=== PATIENT | male | born 1975 | race Caucasian/White ===

== ENCOUNTER 2024-10-01 00:20 | Day surgery (SDC) | payer OTHER, SELFPAY ==
--- NOTE | 2024-09-30 13:26 | PC.NURSE ---
Report to the Outpatient Waiting Room, entrance under the green pavilion located off [facility], at time _1330 on date _10/01/24 . Planned Procedure Time: __1530 .? Time changes happen often and if your time is changed the preop area will call you the afternoon before. - You and your visitor will be asked to self-screen and do not enter if you have any COVID symptoms. Please call surgeon if you need to reschedule. - A mask is optional within the hospital at this time. Patients may have clear liquids (water, carbonated beverages, clear teas, apple juice) until 3 hours prior to surgery ( 12:30 )with a maximum of 20 ounces. - No food from midnight until time of surgery and no smoking, or chewing tobacco (or any form of nicotine). No chewing gum, candy or mints. - Infants may have breast milk until 4 hours before surgery, formula 6 hours prior to surgery. - Children will be allowed to drink immediately following surgery.? If applicable, please bring a bottle or sippy cup to assist with drinking. Juice, water, soda, and popsicles are readily available.? For infants on formula, please bring formula the day of surgery.? Pacifiers are allowed. Take only the following medications with a SIP of water on the morning of surgery: NONE DO NOT STOP ANY OF YOUR OTHER PRESCRIPTION MEDICATIONS PRIOR TO SURGERY EXCEPT THE FOLLOWING Hold all vitamins and supplements for 3 days per anesthesiologist. Medications to discontinue per physician PT STATES HOLD ASPIRIN AND WARFARIN LAST DOSE 09/29/[address] CANTU Please no make-up, nail tristanian, hairspray, perfume, deodorant, or body powder the day of surgery.? No jewelry (including any body piercings) or valuables the day of surgery, leave them at home.? Please take a shower or bath the night before, or the morning of, surgery with an antibacterial soap.? Wear comfortable, loose fitting clothing.? Children are encouraged to wear pajamas. - Jewelry must be removed prior to entering the operating room.? Rings and piercings that are not removed may be cut off. - The hospital will not accept responsibility for valuables.? - Please leave all valuables, including medications, at home the day of surgery. If you are going home after surgery, a licensed food service driver must drive you home.? - NO public transportation without another adult if you receive anesthesia. - We recommend that an adult stay with you for 24 hours following discharge. - We also recommend that you do not drive, make important decision, drink alcoholic beverages, or take any drugs that were not prescribed by your health care provider for at least 24 hours after your discharge time. For Pediatric surgeries, we recommend two adults accompany the child home. Follow any additional instructions given to you from your surgeon. Telephone instructions given to __PATIENT and asked if any additional questions and then verbalized understanding. Patient advised to call surgeon office or pre surgery nurse liaison [phone] if any additional questions.
[2024-09-30 13:31] VITALS: BMI 25.0
[2024-10-01] VITALS (8 sets, daily range): BP systolic 112–145; BP diastolic 70–84; PULSE 53–69; RESP 12–20; TEMP 36.2–36.3; O2SAT 99–100
--- OUTSIDE RECORDS SUMMARY | 2024-10-01 00:23 | XMS_ITS | Encounter Summary ---
Author Organization [facility] Address [address] [place] [address] Phone Care Team Providers Care Rn Teacher Name Role Phone Rell Rose MD Primary Care Provider [phone] Peter Hollins DPM Unavailable [phone] Tom Arias MD Unavailable Zee Garcia APRN, ARMAMENT REPAIRER Unavailable [phone]- [phone] Dwayne Rich MD Unavailable Reason for Visit * Reason Comments Medication Refill Encounter Details Date Type Department Care Team (Late st Contact Info) Description 10/11/2022 Refill [facility] - Family [facility] #2 [place] [address] Rell Rose MD [address] [address] Medication Refill Social History Tobacco Use Types Packs/Day Years Used Date Smoking Tobacco: Never Smokeless Tobacco: Never Alcohol Use Standard Drinks/Week Comments Yes 0 (1 standard drink = 0.6 oz pure alcohol) Patient has been consuming 1-2 glasses of wine nightly, more on weekends. PHQ-2 Answer Date Recorded Total Score - Questions 1-9 0 02/07/2020 Sexually Active Control Partners Comments Yes Female Sex and Gender Information Value Date Recorded Sex Assigned at Not on file Legal Sex Male 9:28 PM CDT Gender Identity Not on file Sexual Orientation Not on file COVID-19 Exposure Response Date Recorded In the last 10 days, have yo u been in contact with someone who was confirmed or suspected to have Coronavirus/COVID-19? No / Unsure 10/09/2022 1:20 PM CDT documented as of this encounter Miscellaneous Notes * Telephone Encounter - Mayra Neal RN - 10/11/2022 10:36 AM CDT 09/26/22 - PT 27.2 INR 2.5 - - no result note on lab, anticoag review last updated 08/28/22 Pt takes 10 mg daily r nursing clinical judgement, provider to review and approve the medication(s) order(s) if appropriate. Requested Prescriptions Pending Prescriptions Disp Refills warfarin (COUMADIN) 10 MG Tablet [Pharmacy Med Name: WARFARIN SODIUM 10 MG TABLET] 90 Tablet 0 Sig: TAKE 1 TABLET BY MOUTH EVERY DAY Warfarin Protocol Passed - 10/11/2022 12:01 AM Passed - CBC on record in the past year WBC Date Value Ref Range Status 09/26/2022 3.27 (L) 4.00 - 12.00 10(3)/mcL Final WBC ESTERASE Date Value Ref Range Status 02/04/2019 Negative Negative Final RBC Date Value Ref Range Status 09/26/2022 4.38 (L) 4.40 - 5.80 10(6)/mcL Final HEMATOCRIT (HCT) Date Value Ref Range Status 09/26/2022 43.5 38.0 - 50.0 % Final HEMOGLOBIN (HGB) Date Value Ref Range Status 09/26/2022 14.4 13.0 - 16.5 g/dL Final MCV Date Value Ref Range Status 09/26/2022 99.3 (H) 82.0 - 96.0 fL Final MCH Date Value Ref Range Status 09/26/2022 32.9 (H) 26.0 - 32.0 pg Final MCHC Date Value Ref Range Status 09/26/2022 33.1 31.0 - 36.0 g/dL Final Passed - Visit with relevant provider in past 12 months or upcoming 90 days Recent Visits Date Type Provider Dept 08/28/22 Office Visit [facility] Showing recent visits within past 365 days and meeting all other requirements Future Appointments Date Type Provider Dept 11/27/22 Appointment Rell Rose MD [facility] Showing future appointments within next 90 days and meeting all other requirements Passed - Patient has referral for nurse managed warfarin, please send to nurse- managed anticoag clinic Orders placed or performed in visit on 12/11/21 (from the past 6[address] hour(s)) ANTICOAGULATION MONITORING REFERRAL Orders placed or performed in visit on 12/12/20 (from the past 32454 hour(s)) ANTICOAGULATION MONITORING REFERRAL Passed - Display Most Recent Dose (if blank, no data is available, check Anticoagulation activity) Description Continue 10 mg daily. Passed - INR on record in the past 6 weeks INR Date Value Ref Range Status 09/26/2022 2.5 (H) 0.9 - 1.2 Final Comment: Therapeutic Ranges INR = 2.0-3.0: Venous thromb, atrial fib, pul embolism, tissue heart valve, ami. INR = 2.5-3.5: Mechanical heart valve Critical value for INR is >/= 4.5 08/28/2022 3.0 (A) 0.9 - 1.1 Final documented in this encounter Plan of Treatment Upcoming Encounters Date Type Department Care Team (Latest Contact Info) Description 10/07/2024 3:45 PM CDT [facility] [address] [place] [address] Dru Hamlin PSYD [place] Discharge Disposition: Discharged to home or Selfcare 10/19/2024 2:15 PM CDT [facility] [address] [place] [address] Dru Hamlin PSYD [place] Discharge Disposition: Discharged to home or Selfcare 01/14/2025 1:30 PM CDT Office Visit [facility] - Cardiology - [place] #2 [place] [address] Zee Kyle APRN, ARMAMENT REPAIRER #[address] [address] 04/15/2025 10:30 AM CDT [facility] Visit [facility] - Family [facility] #2 [place] [address] Rell Rose MD #[address] [address] documented as of this encounter 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 documented in this encounter Additional Health Concerns Assessment Noted Time PHQ-9 Depression Total Score: 0 08/29/19 21 7:00 AM IMPRESSION PRINTER documented as of this encounter Care Teams Rn Teacher Relationship Specialty Start Date End Date Rell Rose MD #[address] [address] PCP - General Family Medicine 06/08/15 Peter Hollins DPM #[address] [address] Podiatry 05/01/16 07/01/24 Tom Arias MD #[address] [address] Consulting Physician Cardiovascular Disease - Cardiology 10/02/22 07/01/24 Zee Kyle APRN, ARMAMENT REPAIRER #[address] [address] Nurse Practitioner Cardiology 01/03/24 Dwayne Rich MD #[address] [address] Consulting Physician Colon and Rectal Surgery 07/14/24 documented as of this encounter
--- OUTSIDE RECORDS SUMMARY | 2024-10-01 00:23 | XMS_ITS | Encounter Summary ---
Author Organization [facility] Address [address] [place] [address] Phone Care Team Providers Care State'S Attorney Name Role Phone Rell Rose MD Primary Care Provider [phone] Peter Hollins DPM Unavailable [phone] Tom Arias MD Unavailable Zee Garcia APRN, TOOL AND DIE ENGINEER Unavailable [phone] Dwayne Rich MD Unavailable Reason for Visit * Reason Comments Medication Refill Encounter Details Date Type Department Care Team (Late st Contact Info) Description 05/25/2023 Refill [facility] - Family Medicine [facility] #2 [place] [address] Rell Rose MD #[address] [address] Medication Refill Social History Tobacco Use Types Packs/Day Years Used Date Smoking Tobacco: Never Smokeless Tobacco: Never Alcohol Use Standard Drinks/Week Comments Yes 0 (1 standard drink = 0.6 oz pure alcohol) Patient has been consuming 1-2 glasses of wine nightly, more on weekends. PHQ-2 Answer Date Recorded Total Score - Questions 1-9 0 02/0 07/2020 Sexually Active Control Partners Comments Yes Female Sex and Gender Information Value Date Recorded Sex Assigned at Not on file Legal Sex Male 9:28 PM CDT Gender Identity Not on file Sexual Orientation Not on file documented as of this encounter Miscellaneous Notes * Telephone Encounter - Mckayla Knight RN - 05/26/2023 8:35 AM CDT 04-11-23 = last PT/INR draw in chart 04-12-23 = anticoag RN conducted tele-managed appt: INR 2.2 patien had eaten several salads last week. He will continue to take 10mg every day. [facility] follow [facility]. I don't see any upcoming lab appts. Medication failed the protocol, provider to review and approve the medication order if appropriate. Requested Prescriptions Pending Prescriptions Disp Refills warfarin (COUMADIN) 10 MG Tablet [Pharmacy Med Name: WARFARIN SODIUM 10 MG TABLET] 90 Tablet 0 Sig: TAKE 1 TABLET BY MOUTH EVERY DAY Warfarin Protocol Failed - 05/25/2023 7:03 AM Failed - INR on record in the past 6 weeks INR Date Value Ref Range Status 04/11/2023 2.2 (H) 0.9 - 1.2 Final Comment: Therapeutic Ranges INR = 2.0-3.0: Venous thromb, atrial fib, pul embolism, tissue heart valve, ami. INR = 2.5-3.5: Mechanical heart valve Critical value for INR is >/= 4.5 08/28/2022 3.0 (A) 0.9 - 1.1 Final Passed - CBC on record in the [...] 32.9 (H) 26.0 - 32.0 pg Final [facility] Date Value Ref Range Status 09/26/2022 33.1 31.0 - 36.0 g/dL Final Passed - Visit with relevant provider in past 12 months or upcoming 90 days Recent Visits Date Type Provider Dept 08/28/22 Office Visit Rell Rose MD [facility] Showing recent visits within past 365 days and meeting all other requirements Future Appointments No visits were found meeting these conditions. Showing future appointments within next 90 days and meeting all other requirements Passed - Patient has referral for nurse managed warfarin, please send to nurse- managed anticoag clinic Orders placed or performed in visit on 03/22/23 (from the past [address] hour(s)) ANTICOAGULATION MONITORING REFERRAL Orders placed or performed in visit on 12/11/21 (from the past [address] hour(s)) ANTICOAGULATION MONITORING REFERRAL Passed - Display Most Recent Dose (if blank, no data is available, check Anticoagulation activity) Description INR 2.2 patien had eaten several salads last week. He will continue to take 10mg every day. [facility]. documented in this encounter Plan of Treatment Upcoming Encounters Date Type Department Care Team (Latest Contact Info) Description 10/07/2024 3:45 PM CDT Outpatient Clinic Visit [facility] [address] [place] [address] Dru Hamlin PSYD [place] Discharge Disposition: Discharged to home or Selfcare 10/19/2024 2:15 PM CDT [facility] [address] [place] [address] Dru Hamlin PSYD [place] Discharge Disposition: Discharged to home or Selfcare 01/14/2025 1:30 PM CDT Office Visit [facility] - Cardiology - [place] #2 [place] [address] Zee Kyle APRN, TOOL AND DIE ENGINEER #2 [facility], [address] [place] [address] 04/15/2025 10:30 AM CDT [facility] #[address] [place] [address] Rell Rose MD #[address] [place] [address] [address] documented as of this encounter 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 documented in this encounter Additional Health Concerns Assessment Noted Time PHQ-9 Depression Total Score: 0 08/29/19 21 7:00 AM PYTHON ENGINEER documented as of this encounter Care Teams State'S Attorney Relationship Specialty Start Date End Date Rell Rose MD [address] [address] PCP - General Family Medicine 06/08/15 Peter Hollins DPM [address] [address] Podiatry 05/01/16 07/01/24 Tom Arias MD #[address] [address] Consulting Physician Cardiovascular Disease - Cardiology 10/02/22 07/01/24 Zee Kyle APRN, TOOL AND DIE ENGINEER [address] [place] [address] [address] Nurse Practitioner Cardiology 01/03/24 Dwayne Rich MD #[address] [place] [address] [address] Consulting Physician Colon and Rectal Surgery 07/14/24 documented as of this encounter
--- OUTSIDE RECORDS SUMMARY | 2024-10-01 00:23 | XMS_ITS | Encounter Summary ---
Author Organization [facility] Address [address] [place] [address] Phone Care Team Providers Care Medical Billing Manager Name Role Phone Rell Rose MD Primary Care Provider [phone] Peter Hollins DPM Unavailable [phone] Tom Arias MD Unavailable Zee Garcia APRN, WRAPPER SHEETER Unavailable [phone]- [phone] Dwayne Rich MD Unavailable Reason for Visit * Reason Comments Medication Refill Encounter Details Date Type Department Care Team (Late st Contact Info) Description 09/02/2020 [facility] [address] [place] [address] Rell Rose MD #[address] [address] Medication Refill Social History Tobacco Use Types Packs/Day Years Used Date Smoking Tobacco: Never Smokeless Tobacco: Never Alcohol Use Standard Drinks/Week Comments Yes 0 (1 standard drink = 0.6 oz pure alcohol) Patient has been consuming 1-2 glasses of wine nightly, more on weekends. PHQ-2 Answer Date Recorded Total Score - Questions 1-9 0 07/2020 Sexually Active Control Partners Comments Yes Female Sex and Gender Information Value Date Recorded Sex Assigned at Not on file Legal Sex Male 9:28 PM CDT Gender Identity Not on file Sexual Orientation Not on file COVID-19 Exposure Response Date Recorded In the last month, have you been in contact with someone who was confirmed or suspected to have Coronavirus / COVID-19? No / Unsure 08/29/2020 7:48 AM WASTEWATER PLANT OPERATOR documented as of this encounter Miscellaneous Notes * Telephone Encounter - Mayra Neal RN - 09/02/2020 11:04 AM CST Medication failed the protocol, provider to review and approve the medication order if appropriate. Requested Prescriptions Pending Prescriptions Disp Refills warfarin (COUMADIN) 6 MG Tablet [Pharmacy Med Name: WARFARIN SODIUM 6 MG TABLET] 90 Tab 0 Sig: TAKE 1 TABLET BY MOUTH EVERY DAY Hematology: Anticoagulants - Warfarin Failed - 09/02/2020 11:03 AM Failed - INR in normal range and within 90 days INR Date Value Ref Range Status 08/11/2020 2.3 (H) 0.9 - 1.2 Final Comment: Therapeutic Ranges INR = 2.0-3.0: Venous thromb, atrial fib, pul embolism, tissue heart valve, ami. INR = 2.5-3.5: Mechanical heart valve Critical value for INR is >/= 4.5 Passed - Valid encounter within last 12 months Past Office Visits Recent Outpatient Visits 4 days ago Thoracolumbar back pain [facility] Frederic Grace APN, CNP 6 months ago Anticoagulated on Coumadin [facility] - Rell Guaman MD 9 months ago Hyperlipidemia, unspecified hyperlipidemia type [facility] Rell Guaman MD 1 year ago Sprain of right knee, unspecified ligament, initial encounter [facility] Frederic Grace APN, CNP 1 year ago [facility] Upcoming Appointments Future Appointments In 1 month Frederic Rae APN, DIOGO [facility] STEPH Varela [facility] [place] - Recent and Past Visits Recent Visits Date Type Provider Dept 08/29/20 Office Visit Frederic Rae APN, CNP [facility] 02/25/20 Office Visit [facility] 11/23/19 Telemedicine Rell Rose MD [facility] 08/24/19 Office Visit Frederic Rae APN, DIOGO [facility] Showing recent visits within past 460 days with a meds authorizing provider and meeting all other requirements Future Appointments Date Type Provider Dept 10/27/20 Appointment Frederic Rae APN, DIOGO [facility] Showing future appointments within next 90 days with a meds authorizing provider and meeting all other requirements EWATER PLANT OPERATOR documented in this encounter Plan of Treatment Upcoming Encounters Date Type Department Care Team (Latest Contact Info) Description 10/07/2024 3:45 PM CDT Outpatient Clinic Visit [facility] [address] [place] [address] Dru Hamlin PSYD [place] Discharge Disposition: Discharged to home or Selfcare 10/19/2024 2:15 PM CDT Outpatient Clinic Visit [facility] 1 [place] [address] Dru Hamlin PSYD [place] Discharge Disposition: Discharged to home or Selfcare 01/14/2025 1:30 PM CDT Office Visit [facility] Medical [facility] - Cardiology - [place] #2 [place] [address] Zee Kyle APRN, WRAPPER SHEETER #2 [facility] [address] [place] [address] 04/15/2025 10:30 AM CDT Office Visit [facility] - Family Medicine - [place] #2 [place] [address] Rell Rose MD #[address] [address] documented as of this encounter Visit Diagnoses Not on filedocumented in this encounter Additional Health Concerns Infection Onset Date Last Indicated Resolved Time COVID - 19 07/16/2022 07/16/2022 07/26/2022 12:1 9 AM WASTEWATER PLANT OPERATOR Assessment Noted Time PHQ-9 Depression Total Score: 0 08/29/19 21 7:00 AM WASTEWATER PLANT OPERATOR documented as of this encounter Care Teams Medical Billing Manager Relationship Specialty Start Date End Date Rell Rose MD #[address] [address] PCP - General Family Medicine 06/08/15 Peter Hollins DPM #[address] [address] Podiatry 05/01/16 07/01/24 Tom Arias MD #[address] [address] Consulting Physician Cardiovascular Disease - Cardiology 10/02/22 07/01/24 Zee Kyle, STONE GRADER, WRAPPER SHEETER #2 [facility] [place] [address] [address] Nurse Practitioner Cardiology 01/03/24 Dwayne Rich MD #[address] [address] Consulting Physician Colon and Rectal Surgery 07/14/24 documented as of this encounter
--- OUTSIDE RECORDS SUMMARY | 2024-10-01 00:23 | XMS_ITS | Encounter Summary ---
Author Organization [facility] Address [address] [place] [address] Phone Care Team Providers Care Trophy Assembler Name Role Phone Rell Rose MD Primary Care Provider +1- [phone] Peter Hollins DPM Unavailable [phone] Tom Arias MD Unavailable Zee Garcia APRN, LATHE SCALPER OPERATOR Unavailable +- [phone] Dwayne Rich MD Unavailable Reason for Visit * Reason Comments Medication Refill Encounter Details Date Type Department Care Team (Late st Contact Info) Description 02/04/2020 Refill [facility] - Family Medicine [facility] #2 [place] [id number] Frederic Rae, GUEVARA, LATHE SCALPER OPERATOR #[address] [address] Medication Refill Social History Tobacco Use Types Packs/Day Years Used Date Smoking Tobacco: Never Smokeless Tobacco: Never Alcohol Use Standard Drinks/Week Comments Yes 0 (1 standard drink = 0.6 oz pure alcohol) Patient has been consuming 1-2 glasses of wine nightly, more on weekends. PHQ-2 Answer Date Recorded PHQ-2 Score 0 04/01/2019 Sexually Active Control Partners Comments Yes Female Sex and Gender Information Value Date Recorded Sex Assigned at Not on file Legal Sex Male 9:28 PM CDT Gender Identity Not on file Sexual Orientation Not on file documented as of this encounter Miscellaneous Notes * Telephone Encounter - Courtney Sunshine RN - 02/09/2020 11:33 AM CDT Requested Prescriptions Pending Prescriptions Disp Refills eszopiclone (LUNESTA) 2 MG Tablet [Pharmacy Med Name: ESZOPICLONE 2 MG TABLET] 30 Tab Sig: TAKE 1 TABLET BY MOUTH NIGHTLY NEEDED FOR SLEEP Not Delegated - Psychiatry: Anxiolytics/Hypnotics Failed - 02/04/2020 7:48 AM Failed - This refill cannot be delegated Passed - Valid encounter within last 6 months Past Office Visits Recent Outpatient Visits 2 months ago Hyperlipidemia, unspecified hyperlipidemia type [facility] Rell Rose MD 5 months ago Sprain of right knee, unspecified ligament, initial encounter [facility] Frederic Rae APN, LATHE SCALPER OPERATOR 9 months ago Hyperglycemia [facility] Frederic Rae APN, LATHE SCALPER OPERATOR 1 year ago Anticoagulated on Coumadin [facility] Rell Velarde MD 1 year ago Anticoagulated on Coumadin [facility] Rell Rose MD Upcoming Appointments Future Appointments In 2 weeks Rell Rose MD [facility] documented in this encounter Plan of Treatment Upcoming Encounters Date Type Department Care Team (Latest Contact Info) Description 10/07/2024 3:45 PM CDT [facility] 1 [place] [address] Dru Ham[place]YD [place] Discharge Disposition: Discharged to home or Selfcare 10/19/2024 2:15 PM CDT Outpatient Clinic Visit [facility] 1 [place] [address] [place], Dru Severo, PSYD [place] Discharge Disposition: Discharged to home or Selfcare 01/14/2025 1:30 PM CDT Office Visit [facility] Medical [facility] - Cardiology - [place] #[address] [place] [address] Zee Kyle APRN, LATHE SCALPER OPERATOR [address], [address] [place] [address] 04/15/2025 10:30 AM CDT [facility] [place] #[address] [place] [address] Rell Rose MD [address] [address] documented as of this encounter Visit Diagnoses Not on filedocumented in this encounter Additional Health Concerns Infection Onset Date Last Indicated Resolved Time COVID - 19 07/16/2022 07/16/2022 07/26/2022 12:1 9 AM FOOTWEAR PRODUCTION MACHINE OPERATOR Assessment Noted Time PHQ-9 Depression Total Score: 0 08/24/19 20 1:00 PM FOOTWEAR PRODUCTION MACHINE OPERATOR documented as of this encounter Care Teams Trophy Assembler Relationship Specialty Start Date End Date Rell Rose MD #[address] [address] PCP - General Family Medicine 06/08/15 Peter Hollins DPM #[address] [address] Podiatry 05/01/16 07/01/24 Tom Arias MD [address] [place] [address] Consulting Physician Cardiovascular Disease - Cardiology 10/02/22 07/01/24 Zee Kyle APRN, LATHE SCALPER OPERATOR [address], [address] [place] [address] Nurse Practitioner Cardiology 01/03/24 Dwayne Rich MD #[address] [place] [address] Consulting Physician Colon and Rectal Surgery 07/14/24 documented as of this encounter
--- OUTSIDE RECORDS SUMMARY | 2024-10-01 00:23 | XMS_ITS | Encounter Summary ---
Author Organization [facility] Address [address] [place] [address] Phone Care Team Providers Care Insurance Broker Name Role Phone Rell Rose MD Primary Care Provider [phone]- [phone] Peter Hollins DPM Unavailable [phone] Tom Arias MD Unavailable Zee Garcia APRN, DIGITAL COMPUTER SYSTEMS ANALYST Unavailable [phone]- [phone] Dwayne Rich MD Unavailable Reason for Visit * Reason Comments Medication Refill Encounter Details Date Type Department Care Team (Late st Contact Info) Description 03/23/2021 Refill [facility] #2 [place] [address] Rell Rose MD #[address] [address] Medication Refill Social History Tobacco Use Types [...] have Coronavirus / COVID-19? No / Unsure 03/07/2021 8:35 AM CDT documented as of this encounter Plan of Treatment Upcoming Encounters Date Type Department Care Team (Latest Contact Info) Description 10/07/2024 3:45 PM CDT Outpatient Clinic Visit [facility] 1 [place] [address] Dru [place]YD [place] Discharge Disposition: Discharged to home or Selfcare 10/19/2024 2:15 PM CDT Outpatient Clinic Visit [facility] 1 [place] [address] Dru [place] Discharge Disposition: Discharged to home or Selfcare 01/14/2025 1:30 PM CDT Office Visit [facility] Medical [facility] - Cardiology - [place] #2 [place] [address] Zee Kyle APRN, DIGITAL COMPUTER SYSTEMS ANALYST #2 [facility] [address] [place] [address] 04/15/2025 10:30 AM CDT Office Visit [facility] Medical Group - Family Medicine - [place] #2 [place] [address] Rell Rose MD #2 [facility] [address] [place] [address] documented as of this encounter Visit Diagnoses Diagnosis [facility] current use of anticoagulant therapy 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 documented in this encounter Additional Health Concerns Infection Onset Date Last Indicated Resolved Time COVID - 19 07/16/2022 07/16/2022 07/26/2022 12:1 9 AM ADMINISTRATIVE INTERN Assessment Noted Time PHQ-9 Depression Total Score: 0 08/29/19 7:00 AM ADMINISTRATIVE INTERN documented as of this encounter Care Teams Insurance Broker Relationship Specialty Start Date End Date Rell Rose MD #[address] [address] PCP - General Family Medicine 06/08/15 Peter Hollins DPM #[address] [address] Podiatry 05/01/16 07/01/24 Tom Arias MD #[address] [address] Consulting Physician Cardiovascular Disease - Cardiology 10/02/22 07/01/24 Zee Kyle APRN, DIGITAL COMPUTER SYSTEMS ANALYST #[address] [address] Nurse Practitioner Cardiology 01/03/24 Dwayne Rich MD #[address] [address] Consulting Physician Colon and Rectal Surgery 07/14/24 documented as of this encounter
--- OUTSIDE RECORDS SUMMARY | 2024-10-01 00:23 | XMS_ITS | Encounter Summary ---
Author Organization [facility] Address [address] [place] [address] Phone Care Team Providers Care Water Softener Installer Name Role Phone Rell Rose MD Primary Care Provider [phone]- [phone] Peter Hollins DPM Unavailable [phone] Tom Arias MD Unavailable Zee Garcia APRN, WASTE WATER TREATMENT PLANT OPERATOR Unavailable [phone]- [phone] Dwayne Rich MD Unavailable Reason for Visit * Reason Comments Medication Refill Encounter Details Date Type Department Care Team (Late st Contact Info) Description 02/22/2023 Refill [facility] - Family Medicine [facility] #2 [place] [address] Rell Rose MD #[address] [address] Medication Refill Social History Tobacco Use Types [...] suspected to have Coronavirus/COVID-19? No / Unsure 02/05/2023 1:11 PM CDT documented as of this encounter Miscellaneous Notes * Telephone Encounter - Mayra Neal RN - 02/22/2023 3:18 PM CDT Anticoag - pt is taking 10 mg daily Medication failed the protocol, provider to review and approve the medication order if appropriate. Requested Prescriptions Pending Prescriptions Disp Refills warfarin (COUMADIN) 10 MG Tablet [Pharmacy Med Name: WARFARIN SODIUM 10 MG TABLET] 90 Tablet 0 Sig: TAKE 1 TABLET BY MOUTH EVERY DAY Warfarin Protocol Failed - 02/22/2023 12:37 PM Failed - Patient does not have referral for nurse managed warfarin, please send to provider for approval Passed - CBC on record in the [...] Dept 08/28/22 Office Visit Rell Rose [facility] [place] Showing recent visits within past 365 days and meeting all other requirements Future Appointments No visits were found meeting these conditions. Showing future appointments within next 90 days and meeting all other requirements Passed - Display Most Recent Dose (if blank, no data is available, check Anticoagulation activity) Passed - INR on record in the past 6 weeks INR Date Value Ref Range Status 02/05/2023 1.7 (H) 0.9 - 1.2 Final Comment: Therapeutic Ranges INR = 2.0-3.0: Venous thromb, atrial fib, pul embolism, tissue heart valve, ami. INR = 2.5-3.5: Mechanical heart valve Critical value for INR is >/= 4.5 08/28/2022 3.0 (A) 0.9 - 1.1 Final * Telephone Encounter - Mayra Neal RN - 02/22/2023 3:16 PM CDT 01/21/23 - 10 mg daily - repeat 02/26/23 documented in this encounter Plan of Treatment Upcoming Encounters Date Type Department Care Team (Latest Contact Info) Description 10/07/2024 3:45 PM CDT [facility] 1 [place] [address] Dru [place] Discharge Disposition: Discharged to home or Selfcare 10/19/2024 2:15 PM CDT Outpatient Clinic Visit [facility] 1 [place] [address] Dru [place] Discharge Disposition: Discharged to home or Selfcare 01/14/2025 1:30 PM CDT Office Visit [facility] Medical Group - Cardiology [facility] #2 [place] [address] Zee Kyle, KNIT GOODS MENDER, WASTE WATER TREATMENT PLANT OPERATOR #2 [facility], [address] [place] [address] 04/15/2025 10:30 AM CDT Office Visit [facility] Family 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 documented in this encounter Additional Health Concerns Assessment Noted Time PHQ-9 Depression Total Score: 0 08/29/19 21 7:00 AM LADIES ATTENDANT documented as of this encounter Care Teams Water Softener Installer Relationship Specialty Start Date End Date Rell Rose MD [address] [address] PCP - General Family Medicine 06/08/15 Peter Hollins DPM #[address] [address] Podiatry 05/01/16 07/01/24 Tom Arias MD #[address] [place] [address] Consulting Physician Cardiovascular Disease - Cardiology 10/02/22 07/01/24 Zee Kyle APRN, WASTE WATER TREATMENT PLANT OPERATOR #2 [facility] [address] [address] Nurse Practitioner Cardiology 01/03/24 Dwayne Rich MD #[address] [address] Consulting Physician Colon and Rectal Surgery 07/14/24 documented as of this encounter
--- OUTSIDE RECORDS SUMMARY | 2024-10-01 00:23 | XMS_ITS | Encounter Summary ---
Author Organization [facility] Address [address] [place] [address] Phone Care Team Providers Care Retirement Plan Counselor Name Role Phone Rell Rose MD Primary Care Provider Peter Hollins DPM Unavailable [phone] Tom Arias MD Unavailable Zee Garcia APRN, OUTSIDE PROPERTY AGENT Unavailable [phone]- [phone] wDayne Rich MD Unavailable Reason for Visit * Reason Comments Medication Refill Encounter Details Date Type Department Care Team (Late st Contact Info) Description [facility] [address] [place] [address] Rell Rose MD #[address] [address] Medication Refill Social History Tobacco [...] have Coronavirus / COVID-19? No / Unsure 03/02/2020 2:13 PM CDT documented as of this encounter Miscellaneous Notes * Telephone Encounter - Shena Fan RN - 03/10/2020 4:18 PM CDT Anticoagulation Summary As of 03/03/2020 INR goal: 2.5-3.5 TTR: 39.6 % (10.4 mo) INR used for dosin.4Low (03/02/2020) Warfarin maintenance plan: 6 mg (5 mg x 1 and 1 mg x 1) every day Weekly warfarin total: 42 mg Plan last modified: Ami Johnson RN (06/15/2019) Next INR check: 03/31/2020 Priority: 28 days Target end date: documented in this encounter Plan of Treatment Upcoming Encounters Date Type Department Care Team (Latest Contact Info) Description 10/07/2024 3:45 PM CDT [facility] 1 [place] [address] Dru Ham[place]D [place] Discharge Disposition: Discharged to home or Selfcare 10/19/2024 2:15 PM CDT Outpatient Clinic Visit [facility] 1 [place] [address] Dru [place] Discharge Disposition: Discharged to home or Selfcare 01/14/2025 1:30 PM CDT [facility] - [place] #2 [place] [address] Zee Kyle, FUR COMBER, OUTSIDE PROPERTY AGENT #2 [facility] [address] [place] [address] 04/15/2025 10:30 AM CDT Office Visit [facility] - Family [facility] - [place] #2 [place] [address] Rell Rose MD [address] [address] documented as of this encounter Visit Diagnoses Not on filedocumented in this encounter Additional Health Concerns Infection Onset Date Last Indicated Resolved Time COVID - 19 07/16/2022 07/16/2022 07/26/2022 12:1 9 AM COTTON CLASSER AIDE Assessment Noted Time PHQ-9 Depression Total Score: 0 08/24/19 20 1:00 PM COTTON CLASSER AIDE documented as of this encounter Care Teams Retirement Plan Counselor Relationship Specialty Start Date End Date Rell Rose MD #[address] [address] PCP - General Family Medicine 06/08/15 Peter Hollins DPM #[address] [address] Podiatry 05/01/16 07/01/24 Tom Arias MD #[address] [place] [address] Consulting Physician Cardiovascular Disease - Cardiology 10/02/22 07/01/24 Zee Kyle APRN, OUTSIDE PROPERTY AGENT #2 [facility] [address] [address] Nurse Practitioner Cardiology 01/03/24 Dwayne Rich MD #[address] [place] [address] Consulting Physician Colon and Rectal Surgery 07/14/24 documented as of this encounter
--- OUTSIDE RECORDS SUMMARY | 2024-10-01 00:23 | XMS_ITS | Encounter Summary ---
Author Organization [facility] Address [address] [place] [address] Phone Care Team Providers Care Core Man Name Role Phone Rell Rose MD Primary Care Provider [phone]- [phone] Zee Kyle APRN, FEED MANAGER Unavailable [phone]- [phone] Dwayne Rich MD Unavailable Reason for Visit * Reason Onset Date Comments Medication Management 09/30/2024 Encounter Details Date Type Department Care Team (Late st Contact Info) Description 09/30/2024 Telephone [facility] - Cardiology - [place] #2 [place] [address] Lavonne Yates APRN, FEED MANAGER #2 [place] [address] Medication Management Social History Tobacco Use Types Packs/Day Years Used Date Smoking Tobacco: Never Smokeless Tobacco: Never Alcohol Use Standard Drinks/Week Comments Yes 1 (1 standard drink = 0.6 oz pur e alcohol) PHQ-2 Answer Date Recorded Total Score - Questions 1-9 0 07/2020 Sexually Active Control Partners Comments Yes Female Sex and Gender Information Value Date Recorded Sex Assigned at Not on file Legal Sex Male 9:28 PM CDT Gender Identity Not on file Sexual Orientation Not on file documented as of this encounter Miscellaneous Notes * Telephone Encounter - Rell Rose MD - 09/30/2024 9:09 AM MANAGER OF DATA Thanks! GER OF DATA * Telephone Encounter - Sia Tirado RN - 09/30/2024 8:22 AM CST Faxed clearance request back to [facility], informed patient he would need to do Lovenox bridge, states he has 5 boxes left of Lovenox so don't need it sent to the pharmacy, he will call them today and see when he will be doing the I/D since they received the request and take his Lovenox accordingly. Routed to PCP to manage after procedure is done GER OF DATA documented in this encounter Plan of Treatment Upcoming Encounters Date Type Department Care Team (Latest Contact Info) Description 10/07/2024 3:45 PM CDT Outpatient Clinic Visit [facility] 1 [place] [address] rDu Ham[place]D [place] Discharge Disposition: Discharged to home or Selfcare 10/19/2024 2:15 PM CDT Outpatient Clinic Visit [facility] 1 [place] [address] Dru [place] Discharge Disposition: Discharged to home or Selfcare 01/14/2025 1:30 PM CDT Office Visit [facility] - Cardiology [facility] #2 [place] [address] Zee Kyle APRN, FEED MANAGER #[address] [address] 04/15/2025 10:30 AM CDT Office Visit [facility] - Family Medicine - [place] #2 [place] [address] Rell Rose MD #2 [facility] [address] [place] [address] documented as of this encounter Goals Goal Patient Goal Type Associated Problems Recent Progress Patient-Stated? Author Behavioral Health Behavioral Health On track( 025 2:56 PM MANAGER OF DATA) Yes Dru Hamlin PSYD Note: Patient wishes to trust his more, and let go of his anger regarding her past affair. Behavioral Health Behavioral Health On track( 025 2:56 PM MANAGER OF DATA) Yes Dru Hamlin PSYD Note: Patient wishes to not overreact to things as much. documented as of this encounter Visit Diagnoses Not on filedocumented in this encounter Additional Health Concerns Assessment Noted Time PHQ-9 Depression Total Score: 0 08/29/19 21 7:00 AM MANAGER OF DATA documented as of this encounter Care Teams Core Man Relationship Specialty Start Date End Date Rell Rose MD #2 [facility] [address] [place] [address] PCP - General Family Medicine 06/08/15 Zee Kyle APRN, FEED MANAGER #2 [facility] [address] [place] [address] Nurse Practitioner Cardiology 01/03/24 Dwayne Rich MD #2 [facility] [address] [place] [address] Consulting Physician Colon and Rectal Surgery 07/14/24 documented as of this encounter
--- OUTSIDE RECORDS SUMMARY | 2024-10-01 00:23 | XMS_ITS | Encounter Summary ---
Author Organization [facility] Address [address] [place] [address] Phone Care Team Providers Care Business Support Name Role Phone Rell Rose MD Primary Care Provider [phone]- [phone] Peter Hollins DPM Unavailable [phone] Tom Arias MD Unavailable Zee Garcia APRN, DRUM WORKER Unavailable [phone]- [phone] Dwayne Rich MD Unavailable Reason for Visit * Reason Comments Medication Refill Encounter Details Date Type Department Care Team (Late st Contact Info) Description 05/11/2020 Refill [facility] - Family Medicine [facility] #2 [place] [address] Rell Rose MD #[address] [address] Medication Refill Social History Tobacco Use Types [...] have Coronavirus / COVID-19? No / Unsure 05/02/2020 8:08 AM CDT documented as of this encounter Miscellaneous Notes * Telephone Encounter - Briseida Zhou RN - 05/13/2020 9:39 AM CDT 03/03/2020 2.4 03/02/2020 2.5-3.5 - 42 mg 6 mg 6 mg 6 mg 6 mg 6 mg 6 mg 6 mg 03/31/2020 Pharmacy notified by [employer]. * Telephone Encounter - Briseida Zhou RN - 05/13/2020 9:37 AM CDT warfarin (COUMADIN) 6 MG Tablet 90 Tab 0 03/10/2020 Sig: Take 6 mg (6 mg x 1) every day 03/03/2020 2.4 03/02/2020 2.5-3.5 - 42 mg 6 mg 6 mg 6 mg 6 mg 6 mg 6 mg 6 mg 03/31/2020 documented in this encounter Plan of Treatment Upcoming Encounters Date Type Department Care Team (Latest Contact Info) Description 10/07/2024 3:45 PM CDT [facility] 1 [place] [address] Dru [place]YD [place] Discharge Disposition: Discharged to home or Selfcare 10/19/2024 2:15 PM CDT [facility] [address] [place] [address] Dru [place] Discharge Disposition: Discharged to home or Selfcare 01/14/2025 1:30 PM CDT Office Visit [facility] - Cardiology [facility] #2 [place] [address] Zee Kyle APRN, DRUM WORKER #[address], [address] [place] [address] 04/15/2025 10:30 AM CDT [facility] Visit [facility] Family [facility] #[address] [place] [address] Rell Rose MD #[address] [address] documented as of this encounter Visit Diagnoses Not on filedocumented in this encounter Additional Health Concerns Infection Onset Date Last Indicated Resolved Time COVID - 19 07/16/2022 07/16/2022 07/26/2022 12:1 9 AM CHIEF DISPATCHER Assessment Noted Time PHQ-9 Depression Total Score: 0 08/24/19 20 1:00 PM CHIEF DISPATCHER documented as of this encounter Care Teams Business Support Relationship Specialty Start Date End Date Rell Rose MD #[address] [address] PCP - General Family Medicine 06/08/15 Peter Hollins DPM #[address] [address] Podiatry 05/01/16 07/01/24 Tom Arias MD #[address] [place] [address] Consulting Physician Cardiovascular Disease - Cardiology 10/02/22 07/01/24 Zee Kyle APRN, DRUM WORKER #[address] [place] [address] Nurse Practitioner Cardiology 01/03/24 Dwayne Rich MD #2 [place] [address] Consulting Physician Colon and Rectal Surgery 07/14/24 documented as of this encounter
--- OUTSIDE RECORDS SUMMARY | 2024-10-01 00:23 | XMS_ITS | Encounter Summary ---
Author Organization [facility] Address [address] [place] [address] Phone Care Team Providers Care Test And Turn Up Technician Name Role Phone Rell Rose MD Primary Care Provider [phone] Peter Hollins DPM Unavailable [phone] Tom Arias MD Unavailable Zee Garcia APRN, AIR BAG BUILDER Unavailable [phone]- [phone] Dwayne Rich MD Unavailable Reason for Visit * Reason Comments Medication Refill Encounter Details Date Type Department Care Team (Late st Contact Info) Description 10/16/2021 Refill [facility] #2 [place] [address] Rell Rose MD #[address] [address] Medication Refill Social History Tobacco Use Types [...] have Coronavirus / COVID-19? No / Unsure 09/28/2021 7:59 AM HEAD TENNIS PROFESSIONAL documented as of this encounter Plan of Treatment Upcoming Encounters Date Type Department Care Team (Latest Contact Info) Description 10/07/2024 3:45 PM CDT Outpatient Clinic Visit [facility] 1 [place] [address] Dru Hamlin PSYD [place] Discharge Disposition: Discharged to home or Selfcare 10/19/2024 2:15 PM CDT Outpatient Clinic Visit [facility] 1 [place] [address] Dru Hamlin PSYD [place] Discharge Disposition: Discharged to home or Selfcare 01/14/2025 1:30 PM CDT Office Visit [facility] Medical [facility] - Cardiology - [place] #2 [place] [address] Zee Kyle APRN, AIR BAG BUILDER #2 [facility] [address] [place] [address] 04/15/2025 10:30 AM CDT Office Visit 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 documented in this encounter Additional Health Concerns Infection Onset Date Last Indicated Resolved Time COVID - 19 07/16/2022 07/16/2022 07/26/2022 12:1 9 AM HEAD TENNIS PROFESSIONAL Assessment Noted Time PHQ-9 Depression Total Score: 0 08/29/19 7:00 AM HEAD TENNIS PROFESSIONAL documented as of this encounter Care Teams Test And Turn Up Technician Relationship Specialty Start Date End Date Rell Rose MD #[address] [address] PCP - General Family Medicine 06/08/15 Peter Hollins DPM #[address] [address] Podiatry 05/01/16 07/01/24 Tom Arias MD #[address] [address] Consulting Physician Cardiovascular Disease - Cardiology 10/02/22 07/01/24 Zee Kyle APRN, AIR BAG BUILDER #[address] [address] Nurse Practitioner Cardiology 01/03/24 Dwayne Rich MD #[address] [address] Consulting Physician Colon and Rectal Surgery 07/14/24 documented as of this encounter
--- OUTSIDE RECORDS SUMMARY | 2024-10-01 00:23 | XMS_ITS | Clinical Summary ---
Author Organization [facility] Address [address] [place] [address] Phone Care Team Providers Care Caddy Master Name Role Phone Rell Rose MD Primary Care Provider [phone] Zee Kyle APRN, CLASS B TRUCK DRIVER Unavailable [phone]- [phone] Dwayne Rich MD Unavailable Allergies No known active allergies Medications Aspirin 81 MG Tablet Take 81 mg by mouth daily. Active sildenafil citrate (VIAGRA) 50 MG Tablet Take 1 tablet by mouth 30-60 minutes before sexual activity as needed. 10 Tab 3 0 Active warfarin (COUMADIN) 10 MG TabletIndications :[facility] current use of anticoagulant therapy,Presence of prosthetic heart valve TAKE 1 TABLET BY MOUTH EVERY DAY 90 Tablet 2 Active Additional Information Patient not taking.Reported on 07/16/2024 eszopiclone (LUNESTA) 2 MG TabletIndications :Primary insomnia Take 1 Tablet by mouth nightly as needed for Sleep. 30 Tablet 3 Active enoxaparin (LOVENOX) 80 MG/0.8ML Solution Prefilled Syringe 4 days prior take coumadin as directed, 3 days prior no coumadin or lovenox, 2 and 1 day prior take lovenox every 12 hours, with last dose evening before procedure, day of procedure no AM lovenox, resume lovenox at evening time and resume coumadin evening time and continue both until INR therapeutic, PCP to check and manage INR and when to stop lovenox 48 mL 5 Active warfarin (COUMADIN) 10 MG TabletIndications :pot fisher current use of anticoagulant therapy TAKE 1 TABLET BY MOUTH EVERY DAY 90 Tablet 5 Active Active Problems Problem Noted Date Diagnosed Date Overweight (BMI 25.0-29.9) 02/25/2020 Erectile dysfunction 11/23/2019 Other male erectile dysfunction 08/24/2019 Hyperglycemia 05/13/2019 Osteoarthritis of spine with radiculopathy, cerv ical region 12/22/2018 Abnormal three view x-ray of cervical spine 11/27 Paresthesias 12/17/2018 Insomnia 12/17/2018 Family history of MS (multiple sclerosis) 2018 Intractable cluster headache syndrome 12/17/2018 Chronic neck pain 12/17/2018 Obesity (BMI 30-39.9) 06/13/2018 Hyperlipidemia 09/14/2016 Heel spur 05/01/2016 Plantar fasciitis, left 05/01/2016 Adjustment disorder with mixed anxiety and depre ssed mood 03/30/2016 Anticoagulated on Coumadin 10/18/2015 Mechanical heart valve present 10/18/2015 Essential hypertension 10/18/2015 Encounters Date Type Department Care Team Description 09/30/2024 Telephone [facility] Medical [facility] - Cardiology - [place] [address]2 [place] [address] Lavonne Yates APRN, CLASS B TRUCK DRIVER Medication Management 09/09/2024 4:10 PM ROTARY LITHOGRAPHIC PRESS OPERATOR Telemanaged Protime [facility] - [place] #2 [place] [address] [facility] Anticoagulation Monitoring 09/08/2024 3:00 PM ROTARY LITHOGRAPHIC PRESS OPERATOR Outpatient Clinic Visit [facility] 1 [facility] [place] [address] Dru Hamlin PSYD Adjustment disorder, unspecified (Primary Dx); Specific phobia: aerophobia Discharge Disposition: Discharged to home or Selfcare 09/08/2024 Travel 09/01/2024 Results Follow-Up [facility] - General Surgery - [place] #[address] [address] Dwayne Rich MD 08/31/2024 10:22 AM ROTARY LITHOGRAPHIC PRESS OPERATOR Anesthesia Event [facility] Periop 1 [facility] [place] [address] Todd Epperson MD [place], Kevin L, APRN, AMENA 08/31/2024 10:00 AM ROTARY LITHOGRAPHIC PRESS OPERATOR - 08/31/2024 10:30 AM ROTARY LITHOGRAPHIC PRESS OPERATOR Surgery [facility] Periop 1 [place] [address] Dwayne Rich MD COLONOSCOPY - NEGATIVE TERMINAL ILEUM, RECTAL POLYPECTOMY - HOT SNARED 08/31/2024 9:35 AM ROTARY LITHOGRAPHIC PRESS OPERATOR Ancillary Procedure [facility] Main 1 [place] [address] Dwayne Rich MD 08/31/2024 8:52 AM ROTARY LITHOGRAPHIC PRESS OPERATOR - 08/31/2024 11:31 AM ROTARY LITHOGRAPHIC PRESS OPERATOR Hospital Encounter [facility] Main 1 [place] [address] Dwayne Rich MD Discharge Disposition: Discharged to home or Selfcare 08/31/2024 Travel 08/25/2024 3:45 PM ROTARY LITHOGRAPHIC PRESS OPERATOR Outpatient Clinic Visit [facility] 1 [place] [address] Dru Hamlin PSYD Adjustment disorder, unspecified (Primary Dx) Discharge Disposition: Discharged to home or Selfcare 08/25/2024 Travel 08/24/2024 1:30 PM ROTARY LITHOGRAPHIC PRESS OPERATOR Lab [facility] - Primary Care - [place] [address] Zeus Phoenix pot fisher current use of anticoagulant therapy Discharge Disposition: Discharged to home or Selfcare 08/24/2024 Travel 08/21/2024 Refill [facility] - Family Medicine - [place] #2 [place] [address] Rell Rose MD Medication Refill 08/18/2024 Travel 08/11/2024 Documentation Only [facility] Family Medicine [facility] #2 [place] [address] Rell Rose MD 07/27/2024 3:45 PM ROTARY LITHOGRAPHIC PRESS OPERATOR Outpatient Clinic Visit [facility] 1 [place] [address] Dru Hamlin PSYD Adjustment disorder, unspecified (Primary Dx) Discharge Disposition: Discharged to home or Selfcare 07/27/2024 Travel 07/16/2024 3:00 PM ROTARY LITHOGRAPHIC PRESS OPERATOR Office Visit [facility] General Surgery [facility] #[address] [address] Frederic Rae APRN, CLASS B TRUCK DRIVER Dwayne Rich MD Screening for colon cancer (Primary Dx) Discharge Disposition: Discharged to home or Selfcare 07/15/2024 3:00 PM ROTARY LITHOGRAPHIC PRESS OPERATOR Outpatient Clinic Visit [facility] 1 [place] [address] Dru Hamlin PSYD Adjustment disorder, unspecified (Primary Dx) Discharge Disposition: Discharged to home or Selfcare 07/15/2024 Travel from Last 3 Months Immunizations Immunization Administration Dates Next Due Influenza Vaccine greater than 3 yrs 04/20/2013, 05/28/2012 Influenza Vaccine, Quadrivalent, PF 05/15/2019,1 08/13/2017,04/24/2016 Influenza, Seasonal, Injecta ble, Undefined 04/20/2013,07/29/2012 PUR FLU 3+ YRS PRES FREE QUAD IM 04/24/2016 04/24/2017 Family History Medical History Relation Name Comments No Known Problems Brother Cancer Father Lung Cancer Father Small cell Dementia Maternal Grandfather Stroke Maternal Grandfather Anemia Maternal Grandmother Hypertension Mother Congestive Heart Failure Paternal Grandmother Multiple Sclerosis Sister Heart Disease Son Relation Name Status Comments Brother Alive Father Maternal Grandfather Maternal Grandmother Mother Alive Paternal Grandfather Paternal Grandmother Sister Alive Son Alive Social History Tobacco Use Types Packs/Day Years Used Date Smoking Tobacco: Never Smokeless Tobacco: Never Tobacco Cessation:Counseling Given: Not Answered Alcohol Use Standard Drinks/Week Comments Yes 1 (1 standard drink = 0.6 oz pur e alcohol) PHQ-2 Answer Date Recorded Total Score - Questions 1-9 0 07/2020 Sexually Active Control Partners Comments Yes Female Sex and Gender Information Value Date Recorded Sex Assigned at Not on file Legal Sex Male 9:28 PM CDT Gender Identity Not on file Sexual Orientation Not on file Last Filed Vital Signs Vital Sign Reading Time Taken Comments Blood Pressure 132/81 08/31/2024 11:20 AM ROTARY LITHOGRAPHIC PRESS OPERATOR Pulse 51 08/31/2024 11:20 AM ROTARY LITHOGRAPHIC PRESS OPERATOR Temperature 36 C (96.8 F) 08/31/2024 11:20 AM ROTARY LITHOGRAPHIC PRESS OPERATOR Respiratory Rate 19 08/31/2024 11:20 AM ROTARY LITHOGRAPHIC PRESS OPERATOR Oxygen Saturation 100% 08/31/2024 11:20 AM ROTARY LITHOGRAPHIC PRESS OPERATOR Inhaled Oxygen Concentration - - Weight 83 kg (183 lb) 08/18/2024 4:00 PM ROTARY LITHOGRAPHIC PRESS OPERATOR Height 180.3 cm (5' 11 ) 08/18/2024 4:00 PM ROTARY LITHOGRAPHIC PRESS OPERATOR Body Mass Index 25.52 08/18/2024 4:00 PM ROTARY LITHOGRAPHIC PRESS OPERATOR Plan of Treatment Upcoming Encounters Date Type Department Care Team (Latest Contact Info) Description 10/07/2024 3:45 PM CDT [facility]patient [facility] 1 [place] [address] Dru Hamlin PSYD [place] Discharge Disposition: Discharged to home or Selfcare 10/19/2024 2:15 PM CDT Outpatient [facility] 1 [place] [address] Dru Hamlin PSYD [place] Discharge Disposition: Discharged to home or Selfcare 01/14/2025 1:30 PM CDT Office Visit [facility] Medical Group - Cardiology [facility] #2 [place] [address] Zee Kyle MUD ANALYSIS WELL LOGGING CAPTAIN, CLASS B TRUCK DRIVER #[address] [place] [address] 04/15/2025 10:30 AM CDT Office Visit [facility] - Family Medicine - [place] [address] [place] [address] Rell Rose MD [address] [place] [address] Health Maintenance Due Date Last Done Comments TdaP Immunization 1973 Hepatitis B Immunization (1 of 3 - 19+ 3-dose series) 1992 Cologuard 2023 Immunochemical Fecal Occult Blood 2023 Pneumococcal Immunization (50+ years) (1 of 1 - PCV) 2023 Zoster Immunization (1 of 2) 2023 Influenza Immunization (#1) 03/29/202404/28, 06/13/2018, 04/24/2016, Additional history exists SARS-COV-2 Immunization ( - 2023-25 season) 2024 Colonoscopy 08/31/2029 08/31/2024, 08/31/2024 Colorectal Cancer Screening 08/31/2029 Respiratory Syncytial Virus (RSV) Immunization (Adult) (1 - 1-dose 75+ series) 2048 08/31/2024 Hepatitis C Virus (HCV) Screening Completed 04/24/2024 Meningococcal Immunization (ACWY) Aged Out No longer eligible based on patient's age to complete this topic Rotavirus Immunization Aged Out No lo nger eligible based on patient's age to complete this topic Goals Goal Patient Goal Type Associated Problems Recent Progress Patient-Stated? Author Behavioral Health Behavioral Health On track( 025 2:56 PM ROTARY LITHOGRAPHIC PRESS OPERATOR) Yes Dru Hamlin PSYD Note: Patient wishes to trust his more, and let go of his anger regarding her past affair. Behavioral Health Behavioral Health On track( 025 2:56 PM ROTARY LITHOGRAPHIC PRESS OPERATOR) Yes Dru Hamlin PSYD Note: Patient wishes to not overreact to things as much. Procedures Procedure Name Priority Date/Time Associated Diagnosis Comments PATHOLOGY SURGICAL 09/01/2024 12 :00 AM ROTARY LITHOGRAPHIC PRESS OPERATOR GENERAL SURGERY PROCEDURE 09/01/2024 12:00 AM ROTARY LITHOGRAPHIC PRESS OPERATOR PATHOLOGY SURGICAL Routine 08/31/2024 10 :48 AM ROTARY LITHOGRAPHIC PRESS OPERATOR COLONOSCOPY 08/31/2024 10:21 AM ROTARY LITHOGRAPHIC PRESS OPERATOR COLONOSCOPY - NEGATIVE TERMINAL ILEUM, RECTAL POLYPECTOMY - HOT SNARED Special Needs CC/Coumadin [facility] in media 08/11 - Bridge orders completed by Cardio and Viji states pt aware. HAVING SURGERY 09/01/24 AT [facility] Dx screen GI IMAGING - COLONOSCOPY Routine 08/31/2024 9:31 AM ROTARY LITHOGRAPHIC PRESS OPERATOR PROTIME (PT) (PROTHROMBIN TIME) Routine 08/24/2024 1:24 PM ROTARY LITHOGRAPHIC PRESS OPERATOR [facility] current use of anticoagulant therapy HEPATITIS C ANTIBODY Routine 04/24/2024 8:13 AM CDT Encounter for hepatitis C screening test for low risk patient from Last 3 Months or Most Recently Relevant to Health Maintenance Results * GENERAL SURGERY PROCEDURE (09/01/2024 12:00 AM ROTARY LITHOGRAPHIC PRESS OPERATOR) 09/01/2024 us Provider Scan GEN ORDERS Final Result SCAN * PATHOLOGY SURGICAL (09/01/2024 12:00 AM ROTARY LITHOGRAPHIC PRESS OPERATOR) Only the most recent of2 resultswithin the time period is included. 09/01/2024 us Provider Scan PATHOLOGY/CYTOLOGY ORDERABLES Fi nal Result SCAN * GI IMAGING - COLONOSCOPY (08/31/2024 9:31 AM ROTARY LITHOGRAPHIC PRESS OPERATOR) Dwayne BISHOP DIAGNOSTIC ORDERABLES Final Result * (ABNORMAL) PROTIME (PT) (PROTHROMBIN TIME) (08/24/2024 1:24 PM ROTARY LITHOGRAPHIC PRESS OPERATOR) PROTIME-PATIENT 29.4(H) 11.6 - 14.8 sec 08/24/2024 3:29 PM ROTARY LITHOGRAPHIC PRESS OPERATOR [facility] INR 2.9(H) 0.9 - 1.2 08/24/2024 3:29 PM ROTARY LITHOGRAPHIC PRESS OPERATOR [facility] Comment: Therapeutic Ranges INR = 2.0-3.0: Venous thromb, atrial fib, pul embolism, tissue heart valve, ami. INR = 2.5-3.5: Mechanical heart valve Critical value for INR is >/= 4.5 Blood Venipuncture / Unknown 08/24/2024 1:24 PM ROTARY LITHOGRAPHIC PRESS OPERATOR 08/24/2024 1:24 PM ROTARY LITHOGRAPHIC PRESS OPERATOR us Rell Rose MD HEMATOLOGY ORDERABLES Final Result Performing Organization Address City/[facility]/ZIP Co de Phone Number [facility] #1 [place] [address] * HEPATITIS C ANTIBODY (04/24/2024 8:13 AM CDT) Pathologist [facility] hepatitis C antibody 0.11 <1 S/CO 04/24/2024 10:54 PM CDT [facility] Comment: Signal/Cutoff ratio < 0.79 is Nondetected Signal/Cutoff ratio 0.80-0.99 is Grayzone Signal/Cutoff ratio > 0.99 is Detected Supplemental assays are recommended if signal/cutoff ratio is >/=1.00. Signal/cutoff ratio result >/= 5.00 is 97% predictive of positivity for recombinant immunoblot assay (RIBA) and will be reported to the [place] Department of Public Health as required. Blood Venipuncture / Unknown 04/24/2024 8:13 AM CDT 04/24/2024 8:13 AM CDT us Frederic Rae MUD ANALYSIS WELL LOGGING CAPTAIN, CLASS B TRUCK DRIVER CHEMISTRY ORDERA BLES Final Result Performing Organization Address City/[facility]/ZIP Co de Phone Number [facility] [address] [place] [address], from Last 3 Months or Most Recently Relevant to Health Maintenance Insurance [facility] Care Teams Caddy Master Relationship Specialty Start Date End Date Rell Rose MD #[address] [address] PCP - General Family Medicine 06/08/15 Zee Kyle APRN, CLASS B TRUCK DRIVER [address] [place] [address] Nurse Practitioner Cardiology 01/03/24 Dwayne Rich MD #[address] [facility] [address] [place] [address] Consulting Physician Colon and Rectal Surgery 07/14/24
--- OUTSIDE RECORDS SUMMARY | 2024-10-01 00:23 | XMS_ITS | Encounter Summary ---
Author Organization [facility] Address [address] [place] [address] Phone Care Team Providers Care Restorer Lace And Textiles Name Role Phone Rell Rose MD Primary Care Provider [phone]- [phone] Peter Hollins DPM Unavailable [phone] Tom Arias MD Unavailable Zee Garcia APRN, STENCIL MAKER Unavailable [phone]- [phone] Dwayne Rich MD Unavailable Reason for Visit * Reason Comments Medication Refill Encounter Details Date Type Department Care Team (Late st Contact Info) Description 01/14/2022 Refill [facility] - [facility]tico[facility] #2 [place] [address] Rell Rose MD #[address] [address] Medication Refill Social History Tobacco Use Types [...] suspected to have Coronavirus/COVID-19? No / Unsure 12/15/2021 7:48 AM CDT documented as of this encounter Miscellaneous Notes * Telephone Encounter - Mayra Neal, RN - 01/15/2022 1:38 PM CDT Medication warning Per nursing clinical judgement, provider to review and approve the medication(s) order(s) if appropriate. Requested Prescriptions Pending Prescriptions Disp Refills warfarin (COUMADIN) 10 MG Tablet [Pharmacy Med Name: WARFARIN SODIUM 10 MG TABLET] 90 Tablet 0 Sig: TAKE 1 TABLET BY MOUTH EVERY DAY Warfarin Protocol Passed - 01/14/2022 7:06 AM Passed - CBC on record in the past year WBC Date Value Ref Range Status 01/27/2021 4.68 4.00 - 12.00 10(3)/mcL Final WBC ESTERASE Date Value Ref Range Status 02/04/2019 Negative Negative Final RBC Date Value Ref Range Status 01/27/2021 4.35 (L) 4.40 - 5.80 10(6)/mcL Final HEMATOCRIT (HCT) Date Value Ref Range Status 01/27/2021 42.8 38.0 - 50.0 % Final HEMOGLOBIN (HGB) Date Value Ref Range Status 01/27/2021 13.8 13.0 - 16.5 g/dL Final MCV Date Value Ref Range Status 01/27/2021 98.4 (H) 82.0 - 96.0 fL Final MCH Date Value Ref Range Status 01/27/2021 31.7 26.0 - 32.0 pg Final MCHC Date Value Ref Range Status 01/27/2021 32.2 31.0 - 36.0 g/dL Final Passed - Visit with relevant provider in past 12 months or upcoming 90 days Recent Visits Date Type Provider Dept 01/26/21 Office Visit Frederic Rae APRN, STENCIL MAKER Annie Varela Showing recent visits within past 365 days and meeting all other requirements Future Appointments No visits were found meeting these conditions. Showing future appointments within next 90 days and meeting all other requirements Passed - Patient has referral for nurse managed warfarin, please send to nurse- managed anticoag clinic Orders placed or performed in visit on 12/11/21 (from the past 26515 hour(s)) ANTICOAGULATION MONITORING REFERRAL Orders placed or performed in visit on 12/12/20 (from the past 475[address] hour(s)) ANTICOAGULATION MONITORING REFERRAL Passed - Display Most Recent Dose (if blank, no data is available, check Anticoagulation activity) Description INR is 2.3; see OV note. This is not a dose decrease. Passed - INR on record in the past 6 weeks INR Date Value Ref Range Status 12/15/2021 2.3 (H) 0.9 - 1.2 Final Comment: Therapeutic Ranges INR = 2.0-3.0: Venous thromb, atrial fib, pul embolism, tissue heart valve, ami. INR = 2.5-3.5: Mechanical heart valve Critical value for INR is >/= 4.5 documented in this encounter Plan of Treatment Upcoming Encounters Date Type Department Care Team (Latest Contact Info) Description 10/07/2024 3:45 PM CDT [facility] 1 [place] [address] Dru Hamlin PSYD [place] Discharge Disposition: Discharged to home or Selfcare 10/19/2024 2:15 PM CDT Outpatient Clinic Visit [facility] 1 [place] [address] Dru Hamlin PSYD [place] Discharge Disposition: Discharged to home or Selfcare 01/14/2025 1:30 PM CDT Office Visit [facility] Medical [facility] - Cardiology - [place] #2 [place] [address] Zee Kyle APRN, STENCIL MAKER #2 [facility] [address] [place] [address] 04/15/2025 10:30 AM CDT Office Visit [facility] - Family Medicine - [place] #2 [facility] [place] [address] Rell Rose MD #[address] [address] documented as of this encounter 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 documented in this encounter Additional Health Concerns Infection Onset Date Last Indicated Resolved Time COVID - 19 07/16/2022 07/16/2022 07/26/2022 12:1 9 AM CRANKSHAFT STRAIGHTENER Assessment Noted Time PHQ-9 Depression Total Score: 0 08/29/19 21 7:00 AM CRANKSHAFT STRAIGHTENER documented as of this encounter Care Teams Restorer Lace And Textiles Relationship Specialty Start Date End Date Rell Rose MD #[address] [address] PCP - General Family Medicine 06/08/15 Peter Hollins DPM #[address] [address] Podiatry 05/01/16 07/01/24 Tom Arias MD #[address] [address] Consulting Physician Cardiovascular Disease - Cardiology 10/02/22 07/01/24 Zee Kyle APRN, STENCIL MAKER #2 [facility] [address] [address] Nurse Practitioner Cardiology 01/03/24 Dwayne Rich MD #[address] [address] Consulting Physician Colon and Rectal Surgery 07/14/24 documented as of this encounter
--- OUTSIDE RECORDS SUMMARY | 2024-10-01 00:23 | XMS_ITS | Encounter Summary ---
Author Organization [facility] Address [address] [place] [address] Phone Care Team Providers Care Prototype Fabricator Name Role Phone Rell Rose MD Primary Care Provider [phone]- [phone] Peter Hollins DPM Unavailable [phone] Tom Arias MD Unavailable Zee Garcia APRN, INTELLIGENCE OPERATIONS SPECIALIST Unavailable [phone]- [phone] Dwayne Rich MD Unavailable Reason for Visit * Reason Comments Medication Refill Encounter Details Date Type Department Care Team (Late st Contact Info) Description 11/23/2023 Refill [facility] Medical [facility] - Family Medicine [facility] #2 [place] [address] Rell Rose MD #[address] [address] Medication Refill Social History Tobacco Use Types [...] encounter Miscellaneous Notes * Telephone Encounter - Irma Da Silva, RN - 11/25/2023 9:54 AM CDT Spoke with pt and he walks in for [facility] lab to get INR checked. Pt is going to go into the lab today or tomorrow. Ok to refill script with pt being seen. documented in this encounter Plan of Treatment Upcoming Encounters Date Type Department Care Team (Latest Contact Info) Description 10/07/2024 3:45 PM CDT Outpatient Clinic Visit [facility] 1 [place] [address] Dru Hamlin PSYD [place] Discharge Disposition: Discharged to home or Selfcare 10/19/2024 2:15 PM CDT Outpatient Clinic Visit [facility] 1 [place] [address] Dru Hamlin PSYD [place] Discharge Disposition: Discharged to home or Selfcare 01/14/2025 1:30 PM CDT Office Visit [facility] Medical Group - Cardiology - [place] #2 [place] [address] Zee Kyle APRN, INTELLIGENCE OPERATIONS SPECIALIST #2 [facility] [address] [place] [address] 04/15/2025 10:30 AM CDT Office Visit [facility] Medical Group - Family Medicine - [place] #2 [place] [address] Rell Rose MD #2 [facility] [address] [place] [address] documented as of this encounter Visit Diagnoses Diagnosis intermediate current use of anticoagulant therapy documented in this encounter Additional Health Concerns Assessment Noted Time PHQ-9 Depression Total Score: 0 08/29/19 21 7:00 AM FLY WINDER documented as of this encounter Care Teams Prototype Fabricator Relationship Specialty Start Date End Date Rell Rose MD #[address] [address] PCP - General Family Medicine 06/08/15 Peter Hollins DPM #[address] [address] Podiatry 05/01/16 07/01/24 Tom Arias MD #[address] [address] Consulting Physician Cardiovascular Disease - Cardiology 10/02/22 07/01/24 Zee Kyle APRN, INTELLIGENCE OPERATIONS SPECIALIST #[address] [address] Nurse Practitioner Cardiology 01/03/24 Dwayne Rich MD #[address] [address] Consulting Physician Colon and Rectal Surgery 07/14/24 documented as of this encounter
--- OUTSIDE RECORDS SUMMARY | 2024-10-01 00:23 | XMS_ITS | Encounter Summary ---
Author Organization [facility] Address [address] [place] [address] Phone Care Team Providers Care Pulmonary Function Technician Name Role Phone Rell Rose MD Primary Care Provider [phone]- [phone] Peter Hollins DPM Unavailable [phone] Tom Arias MD Unavailable Zee Garcia APRN, AIR TRANSPORTATION PROVIDER Unavailable [phone]- [phone] Dwayne Rich MD Unavailable Reason for Visit * Reason Comments Medication Refill Encounter Details Date Type Department Care Team (Late st Contact Info) Description 10/19/2021 Refill [facility] #2 [place] [address] Rell Rose MD #[address] [address] Medication Refill Social History Tobacco Use Types [...] COVID-19? No / Unsure 09/28/2021 7:59 AM CLOTH FOLDER HAND documented as of this encounter Plan of Treatment Upcoming Encounters Date Type Department Care Team (Latest Contact Info) Description 10/07/2024 3:45 PM CDT Outpatient Clinic Visit [facility] 1 [place] [address] Dru Hamlin PSYD [place] Discharge Disposition: Discharged to home or Selfcare 10/19/2024 2:15 PM CDT Outpatient Clinic Visit [facility] 1 [place] [address] Dru [place] PSYD [place] Discharge Disposition: Discharged to home or Selfcare 01/14/2025 1:30 PM CDT Office Visit [facility] Medical [facility] - Cardiology - [place] #2 [place] [address] Zee Kyle APRN, AIR TRANSPORTATION PROVIDER #2 [facility] [address] [place] [address] 04/15/2025 10:30 AM CDT Office Visit [facility] Medical Group - Family Medicine - [place] #2 [place] [address] Rell Rose MD #[address] [address] documented as of this encounter 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 documented in this encounter Additional Health Concerns Infection Onset Date Last Indicated Resolved Time COVID - 19 07/16/2022 07/16/2022 07/26/2022 12:1 9 AM CLOTH FOLDER HAND Assessment Noted Time PHQ-9 Depression Total Score: 0 08/29/19 7:00 AM CLOTH FOLDER HAND documented as of this encounter Care Teams Pulmonary Function Technician Relationship Specialty Start Date End Date Rell Rose MD #[address] [address] PCP - General Family Medicine 06/08/15 Peter Hollins DPM #[address] [address] Podiatry 05/01/16 07/01/24 Tom Arias MD #[address] [address] Consulting Physician Cardiovascular Disease - Cardiology 10/02/22 07/01/24 Zee Kyle APRN, AIR TRANSPORTATION PROVIDER #[address] [address] Nurse Practitioner Cardiology 01/03/24 Dwayne Rich MD #[address] [address] Consulting Physician Colon and Rectal Surgery 07/14/24 documented as of this encounter
--- OUTSIDE RECORDS SUMMARY | 2024-10-01 00:23 | XMS_ITS | Encounter Summary ---
Author Organization [facility] Address [address] [place] [address] Phone Care Team Providers Care Senior Marketing Associate Name Role Phone Rell Rose MD Primary Care Provider [phone]- [phone] Zee Kyle APRN, STOCK PITCHER Unavailable +1- [phone] Dwayne Rich MD Unavailable Encounter Details Date Type Department Care Team (Late st Contact Info) Description 09/01/2024 Results Follow-Up [facility] Medical Group - General Surgery - [place] #[address] [address] Dwayne Rich MD #[address] [address] Social History Tobacco Use Types Packs/Day Years [...] on file documented as of this encounter Progress Notes * Dwayne Rich MD - 09/01/2024 1:18 PM CST Called patient at 09/01/2024 1:18 PM WINDOW SHADE CUTTER. Patient had 1 polyps. Pathology was sessile serrated. Repeat colonoscopy in 5 years. OW SHADE CUTTER documented in this encounter Plan of Treatment Upcoming Encounters Date Type Department Care Team (Latest Contact Info) Description 10/07/2024 3:45 PM CDT Outpatient Clinic Visit [facility] 1 [place] [address] Dru Hamlin PSYD [place] Discharge Disposition: Discharged to home or Selfcare 10/19/2024 2:15 PM CDT Outpatient Clinic Visit [facility] 1 [place] [address] Dru Hamlin PSYD [place] Discharge Disposition: Discharged to home or Selfcare 01/14/2025 1:30 PM CDT Office Visit [facility] Medical [facility] - Cardiology - [place] #2 [place] [address] Zee Kyle APRN, STOCK PITCHER #2 [facility] [address] [place] [address] 04/15/2025 10:30 AM CDT Office Visit [facility] Medical Group - Family Medicine - [place] #2 [place] [address] Rell Rose MD #[address] [address] documented as of this encounter Goals Goal Patient Goal Type Associated Problems Recent Progress Patient-Stated? Author Behavioral Health Behavioral Health On track( 025 2:56 PM WINDOW SHADE CUTTER) Yes Dru Hamlin PSYD Note: Patient wishes to trust his more, and let go of his anger regarding her past affair. Behavioral Health Behavioral Health On track( 025 2:56 PM WINDOW SHADE CUTTER) Yes Dru Hamlin PSYD Note: Patient wishes to not overreact to things as much. documented as of this encounter Visit Diagnoses Not on filedocumented in this encounter Additional Health Concerns Assessment Noted Time PHQ-9 Depression Total Score: 0 08/29/19 21 7:00 AM WINDOW SHADE CUTTER documented as of this encounter Care Teams Senior Marketing Associate Relationship Specialty Start Date End Date Rell Rose MD #2 [facility] [address] [place] [address] PCP - General Family Medicine 06/08/15 Zee Kyle APRN, STOCK PITCHER #2 [facility], [address] [place] [address] Nurse Practitioner Cardiology 01/03/24 Dwayne Rich MD #2 [facility] [address] [place] [address] Consulting Physician Colon and Rectal Surgery 07/14/24 documented as of this encounter
--- OUTSIDE RECORDS SUMMARY | 2024-10-01 00:23 | XMS_ITS | Encounter Summary ---
Author Organization [facility] Address [address] [place] [address] Phone Care Team Providers Care Jewelry Sales Associate Name Role Phone Rell Rose MD Primary Care Provider [phone]- [phone] Peter Hollins DPM Unavailable [phone] Tom Arias MD Unavailable Zee Garcia APRN, CLINICAL RESEARCH DIRECTOR Unavailable [phone]- [phone] Dwayne Rich MD Unavailable Reason for Visit * Reason Comments Medication Refill Encounter Details Date Type Department Care Team (Late st Contact Info) Description 07/13/2022 Refill [facility] Medical Group - Family Medicine [facility] #2 [place] [address] Rell Rose MD #[address] [address] Medication Refill Social History Tobacco Use Types [...] suspected to have Coronavirus/COVID-19? No / Unsure 07/16/2022 1:17 PM MOLDING SANDER documented as of this encounter Miscellaneous Notes * Telephone Encounter - Kelli Quick RN - 07/13/2022 2:01 PM CST Pt requesting refills: will need CBC and OV. OV scheduled for 08/28/2022. CBC to be done at that time. Pt having protime done on 07/18/2022. ING SANDER documented in this encounter Plan of Treatment Upcoming Encounters Date Type Department Care Team (Latest Contact Info) Description 10/07/2024 3:45 PM CDT Outpatient Clinic Visit [facility] 1 [place] [address] Dru Hamlin PSYD [place] Discharge Disposition: Discharged to home or Selfcare 10/19/2024 2:15 PM CDT Outpatient Clinic Visit [facility] Services 1 [place] [address] Dru Hamlin PSYD [place] Discharge Disposition: Discharged to home or Selfcare 01/14/2025 1:30 PM CDT Office Visit [facility] Medical [facility] - Cardiology [facility] #2 [place] [address] Zee Kyle APRN, CLINICAL RESEARCH DIRECTOR #[address] [address] 04/15/2025 10:30 AM CDT Office Visit [facility] - Family Medicine - [place] #2 [place] [address] Rell Rose MD #[address] [address] documented as of this encounter Visit Diagnoses Diagnosis long-term current use of anticoagulant therapy- Primary documented in this encounter Additional Health Concerns Infection Onset Date Last Indicated Resolved Time COVID - 19 07/16/2022 07/16/2022 07/26/2022 12:1 9 AM MOLDING SANDER Assessment Noted Time PHQ-9 Depression Total Score: 0 08/29/19 21 7:00 AM MOLDING SANDER documented as of this encounter Care Teams Jewelry Sales Associate Relationship Specialty Start Date End Date Rell Rose MD #[address] [address] PCP - General Family Medicine 06/08/15 Peter Hollins DPM #[address] [address] Podiatry 05/01/16 07/01/24 Tom Arias MD #[address] [address] Consulting Physician Cardiovascular Disease - Cardiology 10/02/22 07/01/24 Zee Kyle APRN, CLINICAL RESEARCH DIRECTOR #2 [facility] [address] [place] [address] Nurse Practitioner Cardiology 01/03/24 Dwayne Rich MD #[address] [address] Consulting Physician Colon and Rectal Surgery 07/14/24 documented as of this encounter
--- OUTSIDE RECORDS SUMMARY | 2024-10-01 00:23 | XMS_ITS | Encounter Summary ---
Author Organization [facility] Address [address] [place] [address] Phone Care Team Providers Care Measuring Clerk Name Role Phone Rell Rose MD Primary Care Provider Peter Hollins DPM Unavailable [phone] Tom Arias MD Unavailable Zee Garcia APRN, ACTUARIAL ANALYST Unavailable [phone]- [phone] Dwayne Rich MD Unavailable Reason for Visit * Reason Comments Medication Refill Encounter Details Date Type Department Care Team (Late st Contact Info) Description 12/02/[facility] [address] [place] [address] Yareli Olivier, PAC #2 [place] [address] Medication Refill Social History Tobacco Use [...] encounter Miscellaneous Notes * Telephone Encounter - Lauren Klein, RN - 12/02/2019 9:52 AM CDT Requested Prescriptions Pending Prescriptions Disp Refills cyclobenzaprine (FLEXERIL) 5 MG Tablet [Pharmacy Med Name: CYCLOBENZAPRINE 5 MG TABLET] 30 Tab 2 Sig: TAKE 1 TABLET BY MOUTH EVERY DAY AT NIGHT Not Delegated - Analgesics: Muscle Relaxants Failed - 12/02/2019 9:47 AM Failed - This refill cannot be delegated Passed - Valid encounter within last 6 months Past Office Visits Recent Outpatient Visits 3 months ago Sprain of right knee, unspecified ligament, initial encounter [facility] PHYSICIAN [facility] Frederic Rae APN, CNP 6 months ago Hyperglycemia [facility] PHYSICIAN [facility] Frederic Rae APN, CNP 11 months ago Anticoagulated on Coumadin [facility] Rell Rose MD 1 year ago Anticoagulated on Coumadin [facility] PHYSICIAN [facility] Rell Rose MD 2 years ago Anticoagulated on Coumadin [facility] PHYSICIAN [facility] Rell Rose MD Upcoming Appointments Future Appointments In 2 months Rell Rose MD [facility] PHYSICIAN [facility], [facility] documented in this encounter Plan of Treatment Upcoming Encounters Date Type Department Care Team (Latest Contact Info) Description 10/07/2024 3:45 PM CDT Outpatient Clinic Visit [facility] 1 [place] [address] Dru Hamlin PSYD [place] Discharge Disposition: Discharged to home or Selfcare 10/19/2024 2:15 PM CDT Outpatient Clinic Visit [facility] 1 [place] [address] Dru Ham[place] PSYD [place] Discharge Disposition: Discharged to home or Selfcare 01/14/2025 1:30 PM CDT Office Visit [facility] - Cardiology [facility] [address] [place] [address] Zee Kyle APRN, ACTUARIAL ANALYST #2 [facility], [address] [place] [address] 04/15/2025 10:30 AM CDT Office Visit [facility] Family Medicine [facility]3] #[address] [place] [address] Rell Rose MD #[address] [place] [address] [address] documented as of this encounter Visit Diagnoses Not on filedocumented in this encounter Additional Health Concerns Infection Onset Date Last Indicated Resolved Time COVID - 19 07/16/2022 07/16/2022 07/26/2022 12:1 9 AM BINGO CALLER Assessment Noted Time PHQ-9 Depression Total Score: 0 08/24/19 20 1:00 PM BINGO CALLER documented as of this encounter Care Teams Measuring Clerk Relationship Specialty Start Date End Date Rell Rose MD #[address] [address] PCP - General Family Medicine 06/08/15 Peter Hollins DPM #[address] [place] [address] [address] Podiatry 05/01/16 07/01/24 Tom Arias MD #[address] [address] [place] [address] Consulting Physician Cardiovascular Disease - Cardiology 10/02/22 07/01/24 Zee Kyle APRN, ACTUARIAL ANALYST #2 [facility], [facility] [address] [place] [address] Nurse Practitioner Cardiology 01/03/24 Dwayne Rich MD #2 [place] [address] Consulting Physician Colon and Rectal Surgery 07/14/24 documented as of this encounter
--- OUTSIDE RECORDS SUMMARY | 2024-10-01 00:23 | XMS_ITS | Encounter Summary ---
Author Organization [facility] Address [address] [place] [address] Phone Care Team Providers Care Supervisor Soldering Name Role Phone Rell Rose MD Primary Care Provider [phone]- [phone] Peter Hollins DPM Unavailable [phone] Tom Arias MD Unavailable Zee Garcia APRN, RENTAL SALES AGENT Unavailable [phone]- [phone] Dwayne Rich MD Unavailable Reason for Visit * Reason Comments Medication Refill Encounter Details Date Type Department Care Team (Late st Contact Info) Description 02/11/2020 Refill [facility] Medical Group - Family Medicine [facility] #2 [place] [address] Rell Rose MD #[address] [address] Medication Refill Social History Tobacco Use Types [...] on file documented as of this encounter Plan of Treatment Upcoming Encounters Date Type Department Care Team (Latest Contact Info) Description 10/07/2024 3:45 PM CDT Outpatient Clinic Visit [facility] Services 1 [place] [address] Dru Hamlin PSYD [place] Discharge Disposition: Discharged to home or Selfcare 10/19/2024 2:15 PM CDT Outpatient Clinic Visit [facility] Services 1 [place] [address] Dru Ham[place] PSYD [place] Discharge Disposition: Discharged to home or Selfcare 01/14/2025 1:30 PM CDT Office Visit [facility] Medical [facility] - Cardiology [facility] #2 [place] [address] Zee Kyle APRN, RENTAL SALES AGENT #2 [facility] [address] [place] [address] 04/15/2025 10:30 AM CDT Office Visit [facility] Medical [facility] - Family Medicine [facility] #2 [place] [address] Rell Rose MD #2 [facility] [address] [place] [address] documented as of this encounter Visit Diagnoses Not on filedocumented in this encounter Additional Health Concerns Infection Onset Date Last Indicated Resolved Time COVID - 19 07/16/2022 07/16/2022 07/26/2022 12:1 9 AM DATA WAREHOUSE CONSULTANT Assessment Noted Time PHQ-9 Depression Total Score: 0 08/24/19 20 1:00 PM DATA WAREHOUSE CONSULTANT documented as of this encounter Care Teams Supervisor Soldering Relationship Specialty Start Date End Date Rell Rose MD #[address] [address] PCP - General Family Medicine 06/08/15 Peter Hollins DPM #[address] [place] [address] [address] Podiatry 05/01/16 07/01/24 Tom Arias MD #[address] [address] Consulting Physician Cardiovascular Disease - Cardiology 10/02/22 07/01/24 Zee Kyle APRN, RENTAL SALES AGENT #2 [facility], [address] [address] Nurse Practitioner Cardiology 01/03/24 Dwayne Rich MD #[address] [address] Consulting Physician Colon and Rectal Surgery 07/14/24 documented as of this encounter
--- OUTSIDE RECORDS SUMMARY | 2024-10-01 00:23 | XMS_ITS | Encounter Summary ---
Author Organization [facility] Address [address] [place] [address] Phone Care Team Providers Care Sausage Tier Name Role Phone Rell Rose MD Primary Care Provider Peter Hollins DPM Unavailable [phone] Tom Arias MD Unavailable Zee Garcia APRN, HOME HEALTH CLINICAL SUPERVISOR Unavailable [phone] Dwayne Rich MD Unavailable Reason for Visit * Reason Comments Medication Refill Encounter Details Date Type Department Care Team (Late st Contact Info) Description 06/04/2020 [facility] [address] [place] [address] Rell Rose MD [address] [address] Medication Refill Social History Tobacco [...] have Coronavirus / COVID-19? No / Unsure 06/01/2020 8:20 AM CRITICAL CARE UNIT NURSE documented as of this encounter Miscellaneous Notes * Telephone Encounter - Mayra Nela RN - 06/06/2020 1:26 PM CST Medication failed the protocol, provider to review and approve the medication order if appropriate. Requested Prescriptions Pending Prescriptions Disp Refills warfarin (COUMADIN) 6 MG Tablet [Pharmacy Med Name: WARFARIN SODIUM 6 MG TABLET] 90 Tab 0 Sig: TAKE 1 TABLET BY MOUTH EVERY DAY Hematology: Anticoagulants - Warfarin Failed - 06/04/2020 4:41 PM Failed - INR in normal range and within 90 days INR Date Value Ref Range Status 06/01/2020 2.6 (H) 0.9 - 1.2 Final Comment: Therapeutic Ranges INR = 2.0-3.0: Venous thromb, atrial fib, pul embolism, tissue heart valve, ami. INR = 2.5-3.5: Mechanical heart valve Critical value for INR is >/= 4.5 Passed - Valid encounter within last 12 months Past Office Visits Recent Outpatient Visits 3 months ago Anticoagulated on Coumadin [facility] - Rell Guaman MD 6 months ago Hyperlipidemia, unspecified hyperlipidemia type [facility] Rell Blanco MD 9 months ago Sprain of right knee, unspecified ligament, initial encounter [facility] - Frederic Grace APN, DIOGO 1 year ago Hypergly[facility] Frederic Weller APN, DIOGO 1 year ago Anticoagulated on Coumadin [facility] Rell Guaman MD Upcoming Appointments Future Appointments In 2 months Frederic Rae APN, DIOGO [facility] STEPH Sawant FITTER'S ASSISTANT - Recent and Past Visits Recent Visits Date Type Provider Dept 02/25/20 Office Visit Rell Rose MD [facility] 11/23/19 Telemedicine Rell Rose MD [facility] 08/24/19 [facility] [place] 05/15/19 Office Visit Frederic Rae APN, DIOGO [facility] Showing recent visits within past 460 days with a meds authorizing provider and meeting all other requirements Future Appointments Date Type Provider Dept 08/29/20 Appointment Frederic Rae APN, DIOGO [facility] Showing future appointments within next 90 days with a meds authorizing provider and meeting all other requirements ICAL CARE UNIT NURSE documented in this encounter Plan of Treatment Upcoming Encounters Date Type Department Care Team (Latest Contact Info) Description 10/07/2024 3:45 PM CDT Outpatient Clinic Visit [facility] [address] [place] [address] Dru Hamlin PSYD [place] Discharge Disposition: Discharged to home or Selfcare 10/19/2024 2:15 PM CDT Outpatient Clinic Visit [facility] [address] [place] [address] Dru [place] Discharge Disposition: Discharged to home or Selfcare 01/14/2025 1:30 PM CDT Office Visit [facility] - Cardiology - [place] [address] [place] [address] Zee Kyle APRN, DIOGO #2 [facility] [address] [place] [address] 04/15/2025 10:30 AM CDT Office Visit [facility] - Family Medicine - [place] [address] [place] [id number] Rell Rose MD #[address] [address] documented as of this encounter Visit Diagnoses Not on filedocumented in this encounter Additional Health Concerns Infection Onset Date Last Indicated Resolved Time COVID - 19 07/16/2022 07/16/2022 07/26/2022 12:1 9 AM CRITICAL CARE UNIT NURSE Assessment Noted Time PHQ-9 Depression Total Score: 0 08/24/19 20 1:00 PM CRITICAL CARE UNIT NURSE documented as of this encounter Care Teams Sausage Tier Relationship Specialty Start Date End Date Rell Rose MD #[address] [address] PCP - General Family Medicine 06/08/15 Peter Hollins DPM #[address] [address] Podiatry 05/01/16 07/01/24 Tom Arias MD #[address] [address] Consulting Physician Cardiovascular Disease - Cardiology 10/02/22 07/01/24 Zee Kyle APRN, HOME HEALTH CLINICAL SUPERVISOR #[facility] [address] [address] Nurse Practitioner Cardiology 01/03/24 Dwayne Rich MD #[address] [address] Consulting Physician Colon and Rectal Surgery 07/14/24 documented as of this encounter
--- OUTSIDE RECORDS SUMMARY | 2024-10-01 00:23 | XMS_ITS | Encounter Summary ---
Author Organization [facility] Address [address] [place] [address] Phone Care Team Providers Care Watch Case Polisher Name Role Phone Rell Rose MD Primary Care Provider [phone] Peter Hollins DPM Unavailable [phone] Tom Arias MD Unavailable Zee Garcia APRN, BUSINESS SUPPORT ASSISTANT Unavailable [phone] Dwayne Rich MD Unavailable Reason for Visit * Reason Comments Medication Refill Encounter Details Date Type Department Care Team (Late st Contact Info) Description 11/29/2020 [facility] [address] [place] [address] Rell Rose MD #[address] [address] Medication Refill Social History Tobacco Use Types Packs/Day Years Used Date Smoking Tobacco: Never Smokeless Tobacco: Never Alcohol Use Standard Drinks/Week Comments Yes 0 (1 standard drink = 0.6 oz pure alcohol) Patient has been consuming 1-2 glasses of wine nightly, more on weekends. PHQ-2 Answer Date Recorded Total Score - Questions 1-9 0 /07/2020 Sexually Active Control Partners Comments Yes Female [...] have Coronavirus / COVID-19? No / Unsure 11/28/2020 8:43 AM CDT documented as of this encounter Miscellaneous Notes * Telephone Encounter - Mayra Neal RN - 11/30/2020 8:30 AM CDT See anticoag RN note below * Telephone Encounter - Kelli Quick RN - 11/29/2020 5:02 PM CDT I am holding off filling this for a potential dose change. Patient is aware and I will talk to him about refills next week. documented in this encounter Plan of Treatment Upcoming Encounters Date Type Department Care Team (Latest Contact Info) Description 10/07/2024 3:45 PM CDT Outpatient Clinic Visit [facility] [address] [place] [address] Dru Ham[place] Discharge Disposition: Discharged to home or Selfcare 10/19/2024 2:15 PM CDT Outpatient Clinic Visit [facility] [address] [place] [address] Dru [place] Discharge Disposition: Discharged to home or Selfcare 01/14/2025 1:30 PM CDT Office Visit [facility] Medical [facility] - Cardiology [facility] [address] [place] [address] Zee Kyle APRN, BUSINESS SUPPORT ASSISTANT #2 [facility] [address] [place] [address] 04/15/2025 10:30 AM CDT Office Visit [facility] - Family [facility] [address] [place] [address] Rell Rose MD #[address] [address] documented as of this encounter Visit Diagnoses Not on filedocumented in this encounter Additional Health Concerns Infection Onset Date Last Indicated Resolved Time COVID - 19 07/16/2022 07/16/2022 07/26/2022 12:1 9 AM OFFICE WORKFORCE PLANNER Assessment Noted Time PHQ-9 Depression Total Score: 0 08/29/19 21 7:00 AM OFFICE WORKFORCE PLANNER documented as of this encounter Care Teams Watch Case Polisher Relationship Specialty Start Date End Date Rell Rose MD #[address] [facility] [address] [address] PCP - General Family Medicine 06/08/15 Peter Hollins DPM [address] [address] Podiatry 05/01/16 07/01/24 Tom Arias MD [address] [place] [address] Consulting Physician Cardiovascular Disease - Cardiology 10/02/22 07/01/24 Zee Kyle APRN, BUSINESS SUPPORT ASSISTANT #2 [facility] [address] [address] [address] Nurse Practitioner Cardiology 01/03/24 Dwayne Rich MD #[address] [facility] [address] [place] [address] Consulting Physician Colon and Rectal Surgery 07/14/24 documented as of this encounter
[2024-10-01] MEDS: LACTATED RINGERS 1,000 ML 30 ML IV CONT ×2 (12:22→14:44)
[2024-10-01 12:39] LABS: INR 2.4; Prothrombin Time 26.4 Seconds (11.1-14.7)
--- NOTE | 2024-10-01 13:21 | P.PNAN_ITS ---
Anes - Initial Pre Proc Eval Procedure: Operation Date: 10/01/24 14:00 Proposed Procedures p Hematoma Evacuation Left Chest - Porfirio Everett MD Date/Time: 10/01/24 13:21 Surgeon: Porfirio Everett MD Pre Op Diagnosis: History of Gynecomastia Patient Data Age: 49 Gender: M Height: 1.8 m Weight: 82 kg Last Vital Signs Temp 36.2 C L 10/01/24 12:25 Pulse 69 10/01/24 12:25 Resp 16 10/01/24 12:25 BP 145/84 H 10/01/24 12:25 Pulse Ox 100 10/01/24 12:25 O2 Del Method Room Air 10/01/24 12:25 Allergies Allergy/AdvReac Type Severity Reaction Status Date / Time No Known Allergies Allergy Verified 09/30/24 13:24 Home Medications ?Medication ?Instructions ?Recorded ?Confirmed ?Type aspirin 81 mg tablet,delayed 81 mg PO DAILY 08/20/24 10/01/24 History release (Adult Low Dose Aspirin) warfarin 10 mg tablet 10 mg PO QPM 08/20/24 10/01/24 History Laboratory Tests 10/01/24 12:08 PT 26.4 H Seconds (11.1-14.7) INR 2.4 Patient hx anesthesia problems: none Family hx anesthesia problems: none Results Review: All pre-operative results and documents have been reviewed as part of the pre- operative evaluation. [facility] Surgical History Surgical History (Updated 09/01/24 @ 06:55 by Adan Limon MD) S/P AVR (aortic valve replacement) Social History Social History Smoking status: Never smoker Alcohol intake: current Drinks per week: 20 Living arrangements: with family Spiritual care concerns: No Anes - Eval Final PreProcedure Day of Procedure 10/01/24 13:21 Patient weight: overweight Heart: regular rate and rhythm Lungs: clear to auscultation Airway: Mallampati scale class II Neurological: alert and oriented Last oral intake: >/= 8 hours ASA classification: III Emergent: no Anesthetic plan: proceed Anesthesia type and monitoring: general LMA and standard monitoring Results Review: All pre-operative results and documents have been reviewed as part of the pre- operative evaluation. Informed Consent: The patient's anesthetic plan and its attendant risks and benefits were discussed with the patient/family/POA. Questions were solicited and answers provided to the satisfaction of the patient/family/POA.
--- NOTE | 2024-10-01 13:36 | WPDHPUPDATE1 ---
History and Physical Update Update Date/Time: 10/01/24 13:36 History and Physical has been reviewed, including an updated exam of the patient. There are NO changes in the patient's condition. Risks, benefits, and alternatives have been discussed and questions answered. Patient agrees to proceed with procedure.
--- NOTE | 2024-10-01 14:12 | W.PM.PROC2 ---
Procedure Note - Detailed Date of Procedure 10/01/24 Pre-op Diagnosis History of Gynecomastia Post-op Diagnosis Same Procedure Performed Evacuation left chest hematoma. Surgeon Porfirio Everett MD Anesthesia General Indications History of gynecomastia excision. Post-operatively developed a hematoma. Attempted drainage in the office with recurrence. He is currently on blood thinner for a heart valve and we reached out to cardiology who would transition to Coumadin; however, did not want him off blood thinner at any point. We discussed options and he has elected to proceed with elevated INR understanding the risks for recurrence. Findings Minimal old hematoma. Significant induration. Washout completed with surgical power placement. No evidence of active bleeding. Description of Procedure He is here today for the above procedure. Previously and again today the risks, benefits, alternatives were discussed in extensive detail. I wanted him to be very realistic about the risks involved as well as expectations. We discussed aftercare and what to monitor for. Discussed realistic expectations of outcome. Discussed options and risks unique to him.Made sure I answered all of questions to satisfaction today and consent was obtained. He was marked in the preoperative holding area. He was taken to the operating room placed supine on the operating table. Anesthesia was provided by anesthesiology. Prepped and draped in a standard sterile fashion. A surgical time-out was taken. 1% lidocaine and 0.25% bupivacaine with epi were used to anesthetize locally. I opened his previous transverse areolar (inferior to nipple) incision. Minimal old hematoma noted (<5cc) Irrigated copiously with saline solution on TUR tubing and verified a strict hemostasis. I then applied surgical powder. Incision was closed with 3-0 Monocryl, and 5-0 plain gut suture. Dressing was placed. Patient was awoke and taken to PACU without difficulty. All instrument and sponge counts were correct at the end of the case. Estimated Blood Loss 5 Drains No Packing No Pathology None sent Complications No immediate complications Condition Stable Disposition PACU
[2024-10-01] MEDS: ceFAZolin 2 GM/D5W 50 ML 2 GM/50 ML BAG IVPB (14:14)
[2024-10-01] MEDS: LIDO 1%/EPINEPHRINE 1:100,000 20 ML VIAL 5 ML INFILTRATE (14:31)
[2024-10-01] MEDS: BUPivacaine HCL 0.25% PF 10 ML VIAL INFILTRATE (14:31)
== END 2024-10-01 16:30 | disposition home or self-care (01) ==
PROVIDERS: PCP Family Medicine; Visit Provider Surgery Plastic and Reconstructive Surgery
PROC: (CPT 10140; principal; 2024-10-01 14:00)
DX: L76.32 Postprocedural hematoma of skin and subcutaneous tissue following other procedure (principal); Z95.2 Presence of prosthetic heart valve; Z79.01 Long term (current) use of anticoagulants
CPT/HCPCS: 10140; 36415; 85610; J0690; J1100; J2003; J2004; J2250; J2405; J2704; J3010; J7030; J7120